=== PATIENT | male | born 1995 | race Caucasian/White ===

== ENCOUNTER 2017-02-05 07:49 | Emergency (ER) | payer OTHER ==
[~2017-02-05] VITALS: Ht 175.3 cm; Wt 75.0 kg
[2017-02-05 07:50] VITALS: BP 144/81
[2017-02-05] MEDS ORDERED: AZITHROMYCIN 250 MG TABLET ONE (08:21)
[2017-02-05] MEDS ORDERED: LIDOCAINE 1%, 20ML ONE (08:21)
[2017-02-05] MEDS ORDERED: CEFTRIAXONE 250 MG ONE (08:21)
[2017-02-05] MEDS ORDERED: AZITHROMYCIN 500 MG TABLET PO ONE (08:30)
[2017-02-05] MEDS ORDERED: CEFTRIAXONE 250 MG IM ONE (08:30)
== END 2017-02-05 08:42 | disposition home or self-care (01) ==
LOC: ED 08:20
DX: A56.2 Chlamydial infection of genitourinary tract, unspecified (principal); F17.290 Nicotine dependence, other tobacco product, uncomplicated
CPT/HCPCS: 87491; 87591; 96372; 99284; J0696